=== PATIENT | male | born 2000 | race Caucasian/White ===

== ENCOUNTER 2024-06-21 08:21 | Emergency (ER) | payer OTHER ==
[~2024-06-21] VITALS: Ht 165.1 cm; Wt 70.0 kg
[2024-06-21 08:31] VITALS: O2SAT 98
[2024-06-21] MEDS ORDERED: AMOX1TAB16 MT (09:53)
[2024-06-21] MEDS: TETANUS, DIPHTHERIA, PERTUSSIS VAC/PF 0.5ML (>10YR OLD) IM ONE (10:10)
[2024-06-21 10:15] VITALS: BP 117/72; PULSE 89; RESP 18; TEMP 36.78072; O2SAT 98
== END 2024-06-21 10:16 | disposition home or self-care (01) ==
LOC: ER 08:21
DX: S71.131A Puncture wound without foreign body, right thigh, initial encounter (principal); W54.0XXA Bitten by dog, initial encounter; Y93.89 Activity, other specified; Y92.89 Other specified places as the place of occurrence of the external cause; Y99.8 Other external cause status
CPT/HCPCS: 90471; 90715; 99283